=== PATIENT | male | born 1960 | race Caucasian/White ===

== ENCOUNTER → 2021-08-25 08:20 | Outpatient (CLI) | payer OTHER, SELFPAY ==
[2021-08-25 08:46] LABS: COVID19 -Nasal RAPID Negative (Negative)
== END ==
PROVIDERS: Referring Provider Nurse Practitioner Family; Visit Provider Nurse Practitioner Family
DX: Z20.822 Contact with and (suspected) exposure to COVID-19 (principal)
CPT/HCPCS: 87635

== ENCOUNTER → 2021-10-12 09:31 | Outpatient (CLI) | payer OTHER, SELFPAY ==
[2021-10-12 10:17] LABS: 585 Gram Check PASS; Dizziness NO; Postdiastolic BP 93; Postsystolic BP 139; Prediastolic 91; Presystolic 145; Pulse 72; Site of phlebotomy RAC; Swelling NO; Therapeutic Phleb Comment NO COMMENT; Zero Check Sebra Scale PASS
== END ==
PROVIDERS: PCP Internal Medicine; Referring Provider Internal Medicine; Visit Provider Internal Medicine
DX: E23.7 Disorder of pituitary gland, unspecified (principal); E29.1 Testicular hypofunction
CPT/HCPCS: 99195

== ENCOUNTER → 2021-12-21 09:45 | Outpatient (CLI) | payer OTHER, SELFPAY ==
[2021-12-21 10:26] LABS: 585 Gram Check PASS; Dizziness NO; Postdiastolic BP 85; Postsystolic BP 136; Prediastolic 88; Presystolic 131; Pulse 74; Site of phlebotomy RAC; Swelling NO; Temperature 97.3; Therapeutic Phleb Comment NO COMMENT; Zero Check Sebra Scale PASS
[2021-12-21 11:28] LABS: Add Manual Diff / Slide Review NO; Basophils Absolute Auto 100 /uL (0-100); Basophils Percent Auto 2.1 % (0-2); Eosinophils Absolute Auto 300 /uL (0-450); Eosinophils Percent Auto 3.7 % (2-4); Hematocrit 49.3 % (41-53); Hemoglobin 16.9 g/dL (13.5-17.5); Lymphocytes Absolute Auto 1600 /uL (1100-4500); Lymphocytes Percent Auto 23.3 % (25-40); Mean Corpuscular HGB Conc 34.3 % (30-36); Mean Corpuscular Hemoglobin 31.8 PG (26-34); Mean Corpuscular Volume 92.7 fL (80-100); Monocytes Absolute Auto 600 /uL (0-900); Monocytes Percent Auto 9.1 % (3-14); Neutrophils Absolute Auto 4200 /uL (1500-7000); Neutrophils Percent Auto 61.8 % (50-75); Platelet Count 234 X10^3/uL (150-400); Red Blood Cell Count 5.33 X10^6/uL (4.5-5.9); Red Cell Distribution Width 13.6 % (11.6-14.8); White Blood Cell Count 6.8 X10^3/uL (4.5-11.0)
== END ==
PROVIDERS: PCP Internal Medicine; Referring Provider Internal Medicine; Visit Provider Internal Medicine
DX: D75.1 Secondary polycythemia (principal)
CPT/HCPCS: 85025; 99195

== ENCOUNTER 2021-12-22 14:55 | Emergency (ER) | payer OTHER, SELFPAY ==
[2021-12-22 14:59] VITALS: BP 170/103; PULSE 76; RESP 16; TEMP 36.6; O2SAT 99; BMI 32.8
--- NOTE | 2021-12-22 15:01 | DI.RAD.S_ITS ---
PROCEDURE: XR CHEST 1V INDICATIONS: chest pain TECHNIQUE: One view of the chest was acquired. COMPARISON: None. FINDINGS: Surgical changes and devices: None. Lungs and pleura: Lungs are clear. No pleural effusions or pneumothorax. Mediastinum: Mediastinal contours appear normal. Heart size is normal. Bones and chest wall: No suspicious bony lesions. Overlying soft tissues appear unremarkable. IMPRESSION: No acute cardiopulmonary pathology. Dictated by: Antonio Modi M.D. on 12/22/2021 at 15:34 Approved by: Antonio Modi M.D. on 12/22/2021 at 15:35
[2021-12-22 15:37] LABS: Add Manual Diff / Slide Review NO; Basophils Absolute Auto 100 /uL (0-100); Basophils Percent Auto 1.4 % (0-2); Eosinophils Absolute Auto 300 /uL (0-450); Hematocrit 48.5 % (41-53); Hemoglobin 16.6 g/dL (13.5-17.5); Lymphocytes Absolute Auto 2500 /uL (1100-4500); Lymphocytes Percent Auto 27.2 % (25-40); Mean Corpuscular HGB Conc 34.3 % (30-36); Mean Corpuscular Hemoglobin 31.5 PG (26-34); Monocytes Absolute Auto 600 /uL (0-900); Monocytes Percent Auto 7.2 % (3-14); Neutrophils Absolute Auto 5500 /uL (1500-7000); Neutrophils Percent Auto 61.2 % (50-75); Platelet Count 270 X10^3/uL (150-400); Red Blood Cell Count 5.28 X10^6/uL (4.5-5.9); Red Cell Distribution Width 13.3 % (11.6-14.8)
[2021-12-22 15:51] LABS: Alanine Aminotransferase 40 IU/L (<50); Albumin 4.5 g/dL (3.5-5.0); Albumin Globulin Ratio 1.6 (1.0-2.8); Alkaline Phosphatase 48 U/L (38-126); Aspartate Aminotransferase 39 IU/L (17-59); BUN Creatinine Ratio 16.3 (6-22); Bilirubin Total 0.6 mg/dL (0.2-1.3); Blood Urea Nitrogen 16 mg/dL (9-20); Calcium 9.2 mg/dL (8.4-10.2); Carbon Dioxide 27 mmol/L (22-32); Chloride 102 mmol/L (98-107); Creatine Kinase 102 U/L (55-170); Estimated Glomerular Filt Rate > 60 mL/min (>60); Globulin 2.8 g/dL (1.7-4.1); Glucose 96 mg/dL (80-110); HEMOLYSIS 16 (0-50); Lipase 112 U/L (23-300); Potassium 3.9 mmol/L (3.4-5.1); Sodium 139 mmol/L (137-145); Total Protein 7.3 g/dL (6.3-8.2)
[2021-12-22 16:02] LABS: Troponin I < 0.012 ng/mL (0.01-0.034)
[2021-12-22 16:06] LABS: CKMB % Relative Index 1.8 % (1.5-5.0); Creatine Kinase MB 1.85 ng/mL (<2.37)
[2021-12-22 17:09] VITALS: BP 137/91; PULSE 66; RESP 13; O2SAT 100
--- NOTE | 2021-12-22 17:09 | ED.CHESTPAIN ---
HPI - Chest Pain General Chief Complaint: Chest Pain Stated Complaint: Cardic Chest Pains, Sent by [facility] Time Seen by Provider: 12/22/21 17:09 Source: patient Mode of arrival: Ambulatory Limitations: no limitations Related Data Home Medications Medication Instructions Recorded Confirmed fexofenadine 180 mg tablet 180 mg PO DAILY 10/13/21 10/13/21 fluticasone propionate 50 1 spray INTRANASAL DAILY 10/13/21 10/13/21 mcg/actuation nasal spray,suspension loratadine 10 mg tablet (Claritin) 10 mg PO DAILY 10/13/21 10/13/21 Allergies Allergy/AdvReac Type Severity Reaction Status Date / Time No Known Drug Allergies Allergy Verified 12/22/21 15:32 Patient History Social History Smoking Status: Never smoker Smoking Status: Never smoker alcohol intake frequency: holidays/special occasions only Substance Use Type: does not use Exam Initial Vital Signs Initial Vital Signs: Vital Signs Temperature 97.8 F 12/22/21 14:59 Pulse Rate 76 12/22/21 14:59 Respiratory Rate 16 12/22/21 14:59 Blood Pressure 170/103 H 12/22/21 14:59 Pulse Oximetry 99 12/22/21 14:59 Course Orders Ordered: ED Orders 12/22/21 15:00 Complete Blood Count AUTO DIFF Stat Comprehensive Metabolic Panel Stat Lipase Stat Magnesium Stat Troponin & CK Cardiac Panel Stat 12/22/21 15:01 XR chest 1V Stat EKG-12 Lead Stat Vital Signs Vital signs: Vital Signs - 8 hr 12/22/21 14:59 12/22/21 17:09 12/22/21 17:30 Temperature 97.8 F Pulse Rate 76 66 68 Respiratory Rate 16 13 18 Blood Pressure 170/103 H 137/91 H 137/83 Pulse Oximetry 99 100 99 12/22/21 18:00 Temperature Pulse Rate 67 Respiratory Rate 16 Blood Pressure 141/82 H Pulse Oximetry 97 MDM - Chest Pain Lab Data Result diagrams: 12/22/21 15:00 12/22/21 15:00 Labs: Lab Results 12/22/21 12/22/21 Range/Units 15:00 15:00 WBC 9.0 (4.5-11.0) X10^3/uL RBC 5.28 (4.5-5.9) X10^6/uL Hgb 16.6 (13.5-17.5) g/dL Hct 48.5 (41-53) % MCV 92.0 (80-100) fL MCH 31.5 (26-34) PG MCHC 34.3 (30-36) % RDW 13.3 (11.6-14.8) % Plt Count 270 (150-400) X10^3/uL Neut % (Auto) 61.2 (50-75) % Lymph % (Auto) 27.2 (25-40) % [place] % (Auto) 7.2 (3-14) % Eos % (Auto) 3.0 (2-4) % Baso % (Auto) 1.4 (0-2) % Neut # (Auto) 5500 (1825-7652) /uL Lymph # (Auto) 2500 (2619-0258) /uL [place] # (Auto) 600 (0-900) /uL Eos # (Auto) 300 (0-450) /uL Baso # (Auto) 100 (0-100) /uL Sodium 139 (137-145) mmol/L Potassium 3.9 (3.4-5.1) mmol/L Chloride 102 (98-107) mmol/L Carbon Dioxide 27 (22-32) mmol/L BUN 16 (9-20) mg/dL Creatinine 0.98 (0.66-1.25) mg/dL Estimated GFR > 60 (>60) mL/min BUN/Creatinine Ratio 16.3 (6-22) Glucose 96 (80-110) mg/dL Calcium 9.2 (8.4-10.2) mg/dL Magnesium 2.0 (1.6-2.3) mg/dL Total Bilirubin 0.6 (0.2-1.3) mg/dL AST 39 (17-59) IU/L ALT 40 (<50) IU/L Alkaline Phosphatase 48 (38-126) U/L Total Creatine Kinase 102 (55-170) U/L CK-MB (CK-2) 1.85 (<2.37) ng/mL CK-MB (CK-2) Rel Index 1.8 (1.5-5.0) % Troponin I < 0.012 (0.01-0.034) ng/mL Total Protein 7.3 (6.3-8.2) g/dL Albumin 4.5 (3.5-5.0) g/dL Globulin 2.8 (1.7-4.1) g/dL Albumin/Globulin Ratio 1.6 (1.0-2.8) Lipase 112 (23-300) U/L Discharge Plan Departure Prescriptions: No Action loratadine [Claritin] 10 mg tablet 10 mg PO DAILY 0RF fexofenadine 180 mg tablet 180 mg PO DAILY 0RF fluticasone propionate 50 mcg/actuation spray,suspension 1 spray intranasal DAILY 0RF Rx Instructions: administer into each nostril Referrals: Basilio Vasquez MD [Primary Care Provider] -
[2021-12-22 17:30] VITALS: BP 137/83; PULSE 68; RESP 18; O2SAT 99
--- NOTE | 2021-12-22 17:34 | ED_ITS ---
HPI - Chest Pain <Melanie Gerber PA-C - Last Filed: 12/22/21 18:44> General Chief Complaint: Chest Pain Stated Complaint: Cardic Chest Pains, Sent by [facility] Time Seen by Provider: 12/22/21 17:09 Source: patient Mode of arrival: Ambulatory Limitations: no limitations History of Present Illness HPI narrative: Patient is a 61 year old male presenting with chest pain. He has been having intermittent chest pain x 2 weeks. Today the pain was substantially worse, exacerbated by inspiration, and occurred after standing up from his desk that he had been sitting at for hours. Today it lasted for 15 minutes before subsiding and he is in no pain at present. He reports the chest pain as sharp, stabbing, and radiates to his back. Patient began exercising 2 weeks ago, elliptical and stairclimber, and has noticed left-sided midclavicular chest pain daily each morning since exercising began. Pain does not occur during exercise. Pain is exacerbated by certain sleeping and postural positions. Pain usually subsides immediately after he changes posture. He denies any shortness of breath, dizzi ness, nausea. He reports a converting technician at work took his blood pressure and it was 160/110. Patient denies history of heart conditions and takes a prophylactic baby aspirin daily. He states he takes no other medications. Related Data Home Medications Medication Instructions Recorded Confirmed fexofenadine 180 mg tablet 180 mg PO DAILY 10/13/21 10/13/21 fluticasone propionate 50 1 spray INTRANASAL DAILY 10/13/21 10/13/21 mcg/actuation nasal spray,suspension loratadine 10 mg tablet (Claritin) 10 mg PO DAILY 10/13/21 10/13/21 Allergies Allergy/AdvReac Type Severity Reaction Status Date / Time No Known Drug Allergies Allergy Verified 12/22/21 15:32 Review of Systems <Melanie Gerber PA-C - Last Filed: 12/22/21 18:44> Constitutional Constitutional: Reports system reviewed and no additional complaints, except as documented and Denies headache(s) Eyes Eyes: Reports system reviewed and no additional complaints, except as documented ENT Ears, Nose, Mouth, and Throat: Denies dizziness and Denies headache(s) Cardiovascular Cardiovascular: Reports as per HPI, Reports chest pain, Reports chest pain at rest, Denies chest pain with activity, Denies lightheadedness, Denies dyspnea and Denies dyspnea on exertion Respiratory Respiratory: Reports as per HPI, Reports pain on inspiration, Denies dyspnea and Denies dyspnea on exertion Gastrointestinal Gastrointestinal: Reports dyspepsia, Denies nausea and Denies vomiting Genitourinary Genitourinary: Reports system reviewed and no additional complaints, except as documented Musculoskeletal Musculoskeletal: Reports myalgias Integumentary/Breasts Skin/Breast: Reports system reviewed and no additional complaints, except as documented Neurologic Neurologic: Reports as per HPI, Denies dizziness and Denies headache(s) Psychiatric Psychiatric: Reports system reviewed and no additional complaints, except as documented Endocrine Endocrine: Reports system reviewed and no additional complaints, except as documented Hematologic/Lymphatic Hematologic/Lymphatic: Reports system reviewed and no additional complaints, except as documented Allergic/Immunologic Allergic/Immunologic: Reports system reviewed and no additional complaints, except as documented Patient History <Melanie Gerber PA-C - Last Filed: 12/22/21 18:44> Social History Smoking Status: Never smoker Smoking Status: Never smoker alcohol intake frequency: holidays/special occasions only Substance Use Type: does not use Exam <Melanie Gerber PA-C - Last Filed: 12/22/21 18:44> Initial Vital Signs Initial Vital Signs: Vital Signs Temperature 97.8 F 12/22/21 14:59 Pulse Rate 76 12/22/21 14:59 Respiratory Rate 16 12/22/21 14:59 Blood Pressure 170/103 H 12/22/21 14:59 Pulse Oximetry 99 12/22/21 14:59 Const General: cooperative, healthy appearing and comfortable [facility] Head: normal to inspection Eyes General: Yes appearance normal, both eyes and all related structures Pupils: PERRL Chest Chest: abnormal inspection of the chest (left-sided midclavicular reproducible chest pain) Resp Effort & Inspection: normal respiratory effort and able to speak in complete sentences Auscultation: clear to auscultation bilaterally Cardio Rate: regular rate Rhythm: regular rhythm Back/Spine/Pelvis Back: normal to inspection Skin General: no rashes or lesions noted Neuro General: patient alert and patient awake Extrem Left upper extremity: normal to inspection Right lower extremity: normal to inspection <Alley Knowles DO - Last Filed: 12/28/21 08:05> Initial Vital Signs Initial Vital Signs: Vital Signs Temperature 97.8 F 12/22/21 14:59 Pulse Rate 76 12/22/21 14:59 Respiratory Rate 16 12/22/21 14:59 Blood Pressure 170/103 H 12/22/21 14:59 Pulse Oximetry 99 12/22/21 14:59 Course <ROCKY Mae Last Filed: 12/22/21 18:44> Orders Ordered: ED Orders 12/22/21 15:00 Complete Blood Count AUTO DIFF Stat Comprehensive Metabolic Panel Stat Lipase Stat Magnesium Stat Troponin & CK Cardiac Panel Stat 12/22/21 15:01 XR chest 1V Stat EKG-12 Lead Stat Vital Signs Vital signs: Vital Signs - 8 hr 12/22/21 14:59 12/22/21 17:09 12/22/21 17:30 Temperature 97.8 F Pulse Rate 76 66 68 Respiratory Rate 16 13 18 Blood Pressure 170/103 H 137/91 H 137/83 Pulse Oximetry 99 100 99 12/22/21 18:00 12/22/21 18:30 Temperature Pulse Rate 67 78 Respiratory Rate 16 23 Blood Pressure 141/82 H 142/90 H Pulse Oximetry 97 97 <DO Liz Lynn Last Filed: 12/28/21 08:05> Orders Ordered: ED Orders 12/22/21 15:00 Complete Blood Count AUTO DIFF Stat Comprehensive Metabolic Panel Stat Lipase Stat Magnesium Stat Troponin & CK Cardiac Panel Stat 12/22/21 15:01 XR chest 1V Stat EKG-12 Lead Stat Vital Signs Vital signs: Vital Signs - 8 hr 12/22/21 14:59 12/22/21 17:09 12/22/21 17:30 Temperature 97.8 F Pulse Rate 76 66 68 Respiratory Rate 16 13 18 Blood Pressure 170/103 H 137/91 H 137/83 Pulse Oximetry 99 100 99 12/22/21 18:00 12/22/21 18:30 Temperature Pulse Rate 67 78 Respiratory Rate 16 23 Blood Pressure 141/82 H 142/90 H Pulse Oximetry 97 97 MDM - Chest Pain <ROCKY Mae Last Filed: 12/22/21 18:44> Differential Diagnosis Differential diagnosis: Likely chest pain (musculoskeletal) Lab Data Result diagrams: 12/22/21 15:00 05/12/22 15:00 Labs: Lab Results 12/22/21 12/22/21 Range/Units 15:00 15:00 WBC 9.0 (4.5-11.0) X10^3/uL RBC 5.28 (4.5-5.9) X10^6/uL Hgb 16.6 (13.5-17.5) g/dL Hct 48.5 (41-53) % MCV 92.0 (80-100) fL MCH 31.5 (26-34) PG MCHC 34.3 (30-36) % RDW 13.3 (11.6-14.8) % Plt Count 270 (150-400) X10^3/uL Neut % (Auto) 61.2 (50-75) % Lymph % (Auto) 27.2 (25-40) % [place] % (Auto) 7.2 (3-14) % Eos % (Auto) 3.0 (2-4) % Baso % (Auto) 1.4 (0-2) % Neut # (Auto) 5500 (3678-0622) /uL Lymph # (Auto) 2500 (3524-5422) /uL [place] # (Auto) 600 (0-900) /uL Eos # (Auto) 300 (0-450) /uL Baso # (Auto) 100 (0-100) /uL Sodium 139 (137-145) mmol/L Potassium 3.9 (3.4-5.1) mmol/L Chloride 102 (98-107) mmol/L Carbon Dioxide 27 (22-32) mmol/L BUN 16 (9-20) mg/dL Creatinine 0.98 (0.66-1.25) mg/dL Estimated GFR > 60 (>60) mL/min BUN/Creatinine Ratio 16.3 (6-22) Glucose 96 (80-110) mg/dL Calcium 9.2 (8.4-10.2) mg/dL Magnesium 2.0 (1.6-2.3) mg/dL Total Bilirubin 0.6 (0.2-1.3) mg/dL AST 39 (17-59) IU/L ALT 40 (<50) IU/L Alkaline Phosphatase 48 (38-126) U/L Total Creatine Kinase 102 (55-170) U/L CK-MB (CK-2) 1.85 (<2.37) ng/mL CK-MB (CK-2) Rel Index 1.8 (1.5-5.0) % Troponin I < 0.012 (0.01-0.034) ng/mL Total Protein 7.3 (6.3-8.2) g/dL Albumin 4.5 (3.5-5.0) g/dL Globulin 2.8 (1.7-4.1) g/dL Albumin/Globulin Ratio 1.6 (1.0-2.8) Lipase 112 (23-300) U/L Imaging Data Chest x-ray: Radiologist's Impression: [address] [address] XRay Report Signed Patient: Mukesh Eugene MR#: [id number] : 1960 Acct:[id number] Age/Sex: 61 / M Date of Service: 12/22/21 Loc: ED Accession Number: [id number] ?? Procedure: XR chest 1V Ordering Provider: Marietta Antonio D.O. PROCEDURE:? XR CHEST 1V ? INDICATIONS:? chest pain ? TECHNIQUE:? One view of the chest was acquired.? ? COMPARISON:? None. ? FINDINGS:? ? Surgical changes and devices:? None.? ? Lungs and pleura:? Lungs are clear.? No pleural effusions or pneumothorax.? ? Mediastinum:? Mediastinal contours appear normal.? Heart size is normal.? ? Bones and chest wall:? No suspicious bony lesions.? Overlying soft tissues appear unremarkable.? ? IMPRESSION:? No acute cardiopulmonary pathology. ? ? Dictated by: Antonio Modi M.D. on 12/22/2021 at 15:34 ? ? Approved by: Antonio Modi M.D. on 12/22/2021 at 15:35?? ECG Data Attestation: I personally reviewed and interpreted this ECG as follows: Prior ECG tracings: not available for review Interpretation: Sinus Rhythm without any acute changes MDM Narrative Medical decision making narrative: Patient is no longer in any pain at present, his blood pressure has normalized, his troponin was negative, chest xray was unremarkable, and all other labs and imaging were normal. His chest pain was mildly reproducible to deep palpation, and his heart and lungs were clear to auscultation. Based on his physical examination and lab results, his chest pain is likely due to a muscle strain from exercising. Patient can manage this condition outpatient. I instructed him to refrain from exercise until pain subsides and to take OTC ibuprofen as needed. <Alley Knowles, DO - Last Filed: 12/28/21 08:05> Lab Data Labs: Lab Results 12/22/21 12/22/21 Range/Units 15:00 15:00 WBC 9.0 (4.5-11.0) X10^3/uL RBC 5.28 (4.5-5.9) X10^6/uL Hgb 16.6 (13.5-17.5) g/dL Hct 48.5 (41-53) % MCV 92.0 (80-100) fL MCH 31.5 (26-34) PG MCHC 34.3 (30-36) % RDW 13.3 (11.6-14.8) % Plt Count 270 (150-400) X10^3/uL Neut % (Auto) 61.2 (50-75) % Lymph % (Auto) 27.2 (25-40) % [place] % (Auto) 7.2 (3-14) % Eos % (Auto) 3.0 (2-4) % Baso % (Auto) 1.4 (0-2) % Neut # (Auto) 5500 (7877-8625) /uL Lymph # (Auto) 2500 (5995-5672) /uL [place] # (Auto) 600 (0-900) /uL Eos # (Auto) 300 (0-450) /uL Baso # (Auto) 100 (0-100) /uL Sodium 139 (137-145) mmol/L Potassium 3.9 (3.4-5.1) mmol/L Chloride 102 (98-107) mmol/L Carbon Dioxide 27 (22-32) mmol/L BUN 16 (9-20) mg/dL Creatinine 0.98 (0.66-1.25) mg/dL Estimated GFR > 60 (>60) mL/min BUN/Creatinine Ratio 16.3 (6-22) Glucose 96 (80-110) mg/dL Calcium 9.2 (8.4-10.2) mg/dL Magnesium 2.0 (1.6-2.3) mg/dL Total Bilirubin 0.6 (0.2-1.3) mg/dL AST 39 (17-59) IU/L ALT 40 (<50) IU/L Alkaline Phosphatase 48 (38-126) U/L Total Creatine Kinase 102 (55-170) U/L CK-MB (CK-2) 1.85 (<2.37) ng/mL CK-MB (CK-2) Rel Index 1.8 (1.5-5.0) % Troponin I < 0.012 (0.01-0.034) ng/mL Total Protein 7.3 (6.3-8.2) g/dL Albumin 4.5 (3.5-5.0) g/dL Globulin 2.8 (1.7-4.1) g/dL Albumin/Globulin Ratio 1.6 (1.0-2.8) Lipase 112 (23-300) U/L Discharge Plan Departure Patient Disposition: Home Clinical Impression: Muscle strain of chest wall Qualifiers: Encounter type: initial encounter Qualified Code(s): S29.011A - Strain of muscle and tendon of front wall of thorax, initial encounter Chest pain Qualifiers: Chest pain type: other chest pain Qualified Code(s): R07.89 - Other chest pain Instructions: DI for Muscle Strain, DI for Chest Pain Activity Restrictions/Additional Instructions: As discussed, chest pain is likely musculoskeletal pain due to recent exercising and poor posture. Refrain from exercising until the pain subsides, practice good posture while sitting for long periods of time, and take occasional standing breaks. Ibuprofen OTC may be taken to manage the pain as needed. Prescriptions: No Action loratadine [Claritin] 10 mg tablet 10 mg PO DAILY 0RF fexofenadine 180 mg tablet 180 mg PO DAILY 0RF fluticasone propionate 50 mcg/actuation spray,suspension 1 spray intranasal DAILY 0RF Rx Instructions: administer into each nostril Referrals: Basilio Vasquez MD [Primary Care Provider] - <Alley Knowles DO - Last Filed: 12/28/21 08:05> Cosign ED Attending Cosignature Attestation: I was immediately available in the department for consultation. Documentation has been reviewed.
[2021-12-22 18:00] VITALS: BP 141/82; PULSE 67; RESP 16; O2SAT 97
[2021-12-22 18:30] VITALS: BP 142/90; PULSE 78; RESP 23; O2SAT 97
== END 2021-12-22 18:55 | disposition home or self-care (01) ==
PROVIDERS: Emergency Medicine; Emergency Provider Physician Assistant; PCP Internal Medicine
DX: S29.011A Strain of muscle and tendon of front wall of thorax, initial encounter (principal); R07.9 Chest pain, unspecified
CPT/HCPCS: 36415; 71045; 80053; 82550; 82553; 83690; 83735; 84484; 85025; 93005; 99284

== ENCOUNTER → 2022-01-04 09:49 | Outpatient (CLI) | payer OTHER, SELFPAY ==
[2022-01-04 10:29] LABS: 585 Gram Check PASS; Dizziness NO; Postdiastolic BP 84; Postsystolic BP 125; Prediastolic 82; Presystolic 123; Pulse 68; Site of phlebotomy RAC; Swelling NO; Temperature 98.6; Therapeutic Phleb Comment NO COMMENT; Zero Check Sebra Scale PASS
== END ==
PROVIDERS: PCP Internal Medicine; Referring Provider Internal Medicine; Visit Provider Internal Medicine
DX: D75.1 Secondary polycythemia (principal)
CPT/HCPCS: 99195

== ENCOUNTER → 2022-01-18 10:28 | Outpatient (CLI) | payer OTHER, SELFPAY ==
[2022-01-18 11:46] LABS: 585 Gram Check PASS; Dizziness NO; Postdiastolic BP 80; Postsystolic BP 120; Prediastolic 87; Presystolic 138; Pulse 74; Site of phlebotomy LAC; Swelling NO; Temperature 97.9; Zero Check Sebra Scale PASS
[2022-01-18 11:47] LABS: Therapeutic Phleb Comment NO COMMENT
== END ==
PROVIDERS: PCP Internal Medicine; Referring Provider Internal Medicine; Visit Provider Internal Medicine
DX: D75.1 Secondary polycythemia (principal)
CPT/HCPCS: 99195

== ENCOUNTER → 2022-02-01 09:35 | Outpatient (CLI) | payer OTHER, SELFPAY ==
[2022-02-01 10:10] LABS: Add Manual Diff / Slide Review NO; Basophils Absolute Auto 200 /uL (0-100); Basophils Percent Auto 2.3 % (0-2); Eosinophils Absolute Auto 300 /uL (0-450); Eosinophils Percent Auto 3.4 % (2-4); Hematocrit 41.3 % (41-53); Hemoglobin 14.4 g/dL (13.5-17.5); Lymphocytes Absolute Auto 2100 /uL (1100-4500); Lymphocytes Percent Auto 22.9 % (25-40); Mean Corpuscular Hemoglobin 31.8 PG (26-34); Mean Corpuscular Volume 90.9 fL (80-100); Monocytes Absolute Auto 600 /uL (0-900); Monocytes Percent Auto 6.8 % (3-14); Neutrophils Absolute Auto 6000 /uL (1500-7000); Neutrophils Percent Auto 64.6 % (50-75); Platelet Count 289 X10^3/uL (150-400); Red Blood Cell Count 4.54 X10^6/uL (4.5-5.9); Red Cell Distribution Width 13.3 % (11.6-14.8); White Blood Cell Count 9.3 X10^3/uL (4.5-11.0)
[2022-02-01 10:21] LABS: 585 Gram Check PASS; Dizziness NO; Postdiastolic BP 78; Postsystolic BP 124; Prediastolic 81; Presystolic 125; Pulse 76; Site of phlebotomy RAC; Swelling NO; Temperature 98.3; Therapeutic Phleb Comment NO COMMENT; Zero Check Sebra Scale PASS
== END ==
PROVIDERS: PCP Internal Medicine; Referring Provider Internal Medicine; Visit Provider Internal Medicine
DX: D75.1 Secondary polycythemia (principal)
CPT/HCPCS: 85025; 99195

== ENCOUNTER → 2024-01-09 14:14 | Outpatient (CLI) | payer OTHER, SELFPAY ==
--- NOTE | 2024-01-09 14:15 | DI.NM.S_ITS ---
PROCEDURE: NM EXERCISE TREADMILL NON NUC COMPARISON: None. INDICATIONS: CORNARY ARTERY DISEASE FINDINGS: The patient exercised for 10 minutes and 28 seconds reaching 107% of maximum predicted heart rate, 12.8METs, THIAGO -23%. Appropriate BP response to exercise. No angina, no diagnostic ST changes, and no ectopy during exercise or recovery. IMPRESSION: Low risk, normal treadmill ECG only stress test with good exercise tolerance (12.8METs, THIAGO -23%). Dictated by: Matthew Kowalski MD on 01/10/2024 at 13:01 Approved by: Matthew Kowalski MD on 01/10/2024 at 13:03
== END ==
PROVIDERS: PCP Internal Medicine; Referring Provider Internal Medicine Cardiovascular Disease; Visit Provider Internal Medicine Cardiovascular Disease
DX: Z15.89 Genetic susceptibility to other disease (principal); Z76.89 Persons encountering health services in other specified circumstances; I25.10 Atherosclerotic heart disease of native coronary artery without angina pectoris
CPT/HCPCS: 93017